=== PATIENT | male | born 1975 | race Two or more races ===

== ENCOUNTER 2022-11-19 19:40 | Emergency (ER) | payer OTHER ==
[~2022-11-19] VITALS: Ht 177.8 cm; Wt 131.5 kg
[2022-11-19] MEDS ORDERED: CANDESARTAN CIL32 MG PO (20:03)
[2022-11-19] MEDS ORDERED: ELIQUIS5 MG PO (20:04)
== END 2022-11-19 21:36 | disposition home or self-care (01) ==
LOC: ER 19:40
DX: S49.81XA Other specified injuries of right shoulder and upper arm, initial encounter (principal); W18.39XA Other fall on same level, initial encounter; Y93.89 Activity, other specified; Y92.018 Other place in single-family (private) house as the place of occurrence of the external cause; S69.81XA Other specified injuries of right wrist, hand and finger(s), initial encounter; S59.811A Other specified injuries right forearm, initial encounter

== ENCOUNTER 2024-03-25 08:40 | Outpatient (CLI) | payer OTHER ==
[~2024-03-25 08:40] MED LIST: CANDESARTAN CIL32 MG PO; ELIQUIS5 MG PO
== END 2024-03-25 08:41 | disposition home or self-care (01) ==
LOC: NUCLEAR 08:40
PROVIDERS: ATTEND Specialist
DX: I82.401 Acute embolism and thrombosis of unspecified deep veins of right lower extremity (principal)

== ENCOUNTER 2024-03-25 11:31 | Outpatient (CLI) | payer OTHER | END 2024-03-25 11:37 | disposition home or self-care (01) | LOC: SONOGRAMA 11:31 | PROVIDERS: ATTEND Specialist | DX: K40.90 Unilateral inguinal hernia, without obstruction or gangrene, not specified as recurrent (principal) ==

== ENCOUNTER 2024-03-26 08:25 | Outpatient (CLI) | payer OTHER | END 2024-03-26 08:26 | disposition home or self-care (01) | LOC: NUCLEAR 08:25 | PROVIDERS: ATTEND Specialist | DX: I82.401 Acute embolism and thrombosis of unspecified deep veins of right lower extremity (principal) ==

== ENCOUNTER 2024-08-09 19:36 | Emergency (ER) | payer OTHER ==
[~2024-08-09] VITALS: Ht 177.8 cm; Wt 108.9 kg
[2024-08-09] MEDS ORDERED: DEXAMETHASONE SODIUM PHOSPHATE 4 MG/ML VIAL IM STA (21:05)
[2024-08-09] MEDS ORDERED: GUAIFENESIN 200 MG/10 ML BLIST.PACK PO STA (21:05)
[2024-08-09] MEDS ORDERED: GUAIFENESIN/DEXTROMETHORPHAN 100MG/10ML BLIST.PACK PO ONE (21:20)
[2024-08-09] MEDS ORDERED: DEXAMETHASONE SODIUM PHOSPHATE 4 MG/ML VIAL ONE (21:20)
[2024-08-09 21:54] LABS: HEMOGLOBIN 17.2 g/dL (13-16.00); MEAN CELL VOLUME 92.3 fL (80.0-100.00); MEAN CORPUSCULAR HEMOGLOBIN 31.7 pg (27.00-32.0); MEAN CORPUSCULAR HGB CONC 34.3 g/dl (32.0-36.0); PLATELET COUNT 164 K/uL (150-450); RED BLOOD COUNT 5.42 M/uL (4.00-6.00); RED CELL DISTRIBUTION WIDTH 14.2 % (11.5-14.5)
[2024-08-09] MEDS ORDERED: GUAIFENESIN 200 MG/10 ML BLIST.PACK PO ONE (22:12)
[2024-08-09] MEDS ORDERED: ZITHROMAX500 MG PO (22:13)
[2024-08-09] MEDS ORDERED: PROAIR RESPICL90 MCG IH (22:13)
== END 2024-08-09 22:40 | disposition home or self-care (01) ==
LOC: ER 19:36
PROVIDERS: Emergency Medicine
DX: J06.9 Acute upper respiratory infection, unspecified (principal); I10 Essential (primary) hypertension; I82.491 Acute embolism and thrombosis of other specified deep vein of right lower extremity

== ENCOUNTER 2024-12-14 05:11 | Day surgery (SDC) | payer OTHER ==
[2024-12-08 08:48] LABS: PH,URINE 5.5 (5.0-8.0); URINE APPEARANCE Clear; URINE BILIRRUBIN Negative (NEGATIVE); URINE BLOOD Negative; URINE COLOR Yellow; URINE GLUCOSE Negative (NEGATIVE); URINE KETONE Negative (NEGATIVE); URINE LEUKOCYTE Negative; URINE NITRATE Negative; URINE PROTEIN Negative (NEGATIVE)
[2024-12-08 08:49] LABS: BASO % 0.7 % (0.1-1.2); EOS # 0.17 (0.04-0.54); EOS % 2.9 % (0.7-7.0); HEMATOCRIT 49.1 % (40.1-51.0); HEMOGLOBIN 16.5 g/dL (13.7-17.5); LYMPH # 2.26 (1.18-3.74); LYMPH % 38.3 % (19.3-53.1); MEAN CORPUSCULAR HEMOGLOBIN 31.1 pg (25.6-32.2); MONO # 0.45 (0.24-0.82); MONO % 7.6 % (4.7-12.5); NEUT # 2.97 (1.56-6.13); NEUT % 50.3 % (34.0-71.1); PLATELET COUNT 243 K/uL (163-369); RED CELL DISTRIBUTION WIDTH 12.9 % (11.6-14.4)
[2024-12-08 08:49] LABS: URINE BACTERIA 4.8 uL (0.0-1933); URINE RBC 2.3 uL (0.0-20.8)
[2024-12-08 08:51] LABS: URINE EPITHELIAL CELLS 0.7 uL (0.0-38.8); URINE WBC 1.7 uL (0.0-23.2)
[2024-12-08 09:21] VITALS: BP 104/68
[2024-12-08 09:45] LABS: ALBUMIN 4.1 gm/dL (3.4-5.0); BILIRUBIN TOTAL 1.46 mg/dL (0.3-1.2); CALCIUM 9.4 mg/dL (8.5-10.1); CREATININE SERUM 1.09 mg/dL (0.70-1.30); GFR 72.51; GLOBULINA 2.8 G/DL (2.4-3.5); POTASSIUM 4.54 mEq/L (3.5-5.1); TOTAL PROTEIN 6.9 gm/dL (6.4-8.2)
[2024-12-08 09:49] LABS: INR 1.04; PARTIAL THROMBOPLASTIN TIME 32.7 SECONDS (22.0-34.0); PROTHROMBIN TIME 11.3 SECONDS (9.0-11.5)
[~2024-12-14] VITALS: Ht 177.8 cm; Wt 111.1 kg
[~2024-12-14 05:11] MED LIST changes: +ATORVASTATIN CA10 MG PO; +PROAIR RESPICL90 MCG IH; +ZITHROMAX500 MG PO
[2024-12-14] MEDS ORDERED: CEFAZOLIN SODIUM 1,000 MG VIAL IV ONE (08:45)
[2024-12-14] MEDS ORDERED: FAMOTIDINE/PF 20 MG/10 ML SYRINGE IV SCH (09:45)
[2024-12-14] MEDS ORDERED: CEFAZOLIN SODIUM 1,000 MG VIAL IV SCH (09:45)
[2024-12-14] MEDS ORDERED: MORPHINE SULFATE 4 MG/ML VIAL IV ONE (10:05)
[2024-12-14] MEDS ORDERED: CEFAZOLIN SODIUM 1,000 MG VIAL ONE (11:33)
[2024-12-14] MEDS ORDERED: FAMOTIDINE/PF 20 MG/2 ML VIAL ONE (11:33)
== END 2024-12-14 12:50 | disposition home or self-care (01) ==
LOC: CIR.AMB 05:11
PROVIDERS: ATTEND Specialist
DX: K40.90 Unilateral inguinal hernia, without obstruction or gangrene, not specified as recurrent (principal)